=== PATIENT | female | born 1975 | race Caucasian/White ===

== ENCOUNTER 2023-07-30 03:38 | Day surgery (SDC) | payer OTHER, SELFPAY ==
[2023-07-19 13:05] VITALS: BMI 24.2
--- NOTE | 2023-07-19 13:09 | PC.NURSE ---
Report to the Outpatient Waiting Room, entrance under the green pavilion located off [facility], at time 1030 on date 07/30/23. Planned Procedure Time: 1230. Time changes happen often and if your time is changed the preop area will call you the afternoon before. - You and your visitor will be asked to self-screen and do not enter if you have any COVID symptoms. - A mask is optional within the hospital at this time. Patients may have clear liquids (water, carbonated beverages, clear teas, apple juice) until 3 hours prior to surgery with a maximum of 20 ounces. - No food from midnight until time of surgery Take the following medications with a SIP of water the morning of surgery: BUPROPION, GABAPENTIN, VENLAFAXINE DO NOT STOP ANY OF YOUR OTHER PRESCRIPTION MEDICATIONS PRIOR TO SURGERY ?EXCEPT THE FOLLOWING Medications to discontinue per physician: N/A Date to take last dose: N/A Please no make-up, nail hungarian, hairspray, perfume, deodorant, or body powder the day of surgery. No jewelry (including any body piercings) or valuables the day of surgery, leave them at home. Please take a shower or bath the night before, or the morning of, surgery with an antibacterial soap. Wear comfortable, loose fitting clothing. - Jewelry must be removed prior to entering the operating room. Rings and piercings that are not removed may be cut off. - The hospital will not accept responsibility for valuables. - Please leave all valuables, including medications, at home the day of surgery. If you are going home after surgery, a licensed box truck driver must drive you home. - NO public transportation without another adult if you receive anesthesia. - We recommend that an adult stay with you for 24 hours following discharge. - We also recommend that you do not drive, make important decision, drink alcoholic beverages, or take any drugs that were not prescribed by your health care provider for at least 24 hours after your discharge time. Follow any additional instructions given to you from your surgeon. If you or anyone in your household have experienced Covid symptoms in the past week, please notify your surgeon or the nurse liaison at the phone number below for possible testing. Telephone instructions given to PT Meron LOUIS and asked if any additional questions and then verbalized understanding. Patient advised to call surgeon office or pre surgery nurse liaison [phone] if any additional questions.
--- NOTE | 2023-07-30 07:22 | WPDHPUPDATE1 ---
History and Physical Update Update Date/Time: 07/30/23 07:22 History and Physical has been reviewed, including an updated exam of the patient. There are NO changes in the patient's condition. Risks, benefits, and alternatives have been discussed and questions answered. Patient agrees to proceed with procedure.
--- NOTE | 2023-07-30 07:22 | PM.HPGS ---
History of Present Illness History of Present Illness Consent: Risks, benefits, and alternatives have been discussed and questions answered. Patient agrees to proceed with procedure. Chief complaint: vaginal lesion Narrative: Sintia Morel is a 47 year old female with vaginal cuff lesion. Patient reported an episode of vaginal bleeding. On exam a vaginal cuff lesion was identified. It was recommended to go undergo excisional biopsy for pathology. Risks infection, bleeding, and possible pathology are discussed. Patient voices understanding and agrees to proceed. Review of Systems Review of Systems: not repeated day of surgery; patient states no changes in status PMFSH Past Medical History Medical History (Updated 07/30/23 @ 07:28 by Katt Miller MD) Migraine (normal spontaneous vaginal delivery) x4 Status post hysteroscopy Surgical History Surgical History (Updated 07/30/23 @ 07:26 by Katt Miller MD) History of hysterectomy total vaginal hysterectomy 2017 for menorrhagia Status post breast biopsy 2017 benign Status post partial thyroidectomy left 2021 Social History Social History Smoking status: Never smoker Alcohol intake: current Alcohol use details: VERY RARE Substance use: never Substance use type: does not use Living arrangements: with family Spiritual care concerns: No Meds Home Medications and Allergies Home Medications Medication Instructions Recorded Confirmed Type bupropion HCl 150 mg 24 hr tablet, 150 mg PO DAILY 07/19/23 07/19/23 History extended release gabapentin 300 mg capsule 300 mg PO TID 07/19/23 07/19/23 History ipratropium bromide 21 mcg (0.03 2 spray intranasal BID 07/19/23 07/19/23 History %) nasal spray venlafaxine 75 mg capsule,extended 75 mg PO DAILY 07/19/23 07/19/23 History release 24 hr Allergies Allergy/AdvReac Type Severity Reaction Status Date / Time No Known Allergies Allergy Unknown Unverified 07/19/23 13:02 Exam Const: General: healthy appearing and alert Orientation/consciousness: patient oriented x3 Resp: Effort & Inspection: normal respiratory effort : External Female Exam: normal external appearance Speculum Exam - Vagina: normal vaginal discharge and lesion ( vaginal lesion consistent with possible polyp) Bimanual Exam- Adnexa, other: normal adnexae and No adnexal tenderness Neuro: General: patient oriented x3 Assessment and Plan Assessment and plan (1) Vaginal lesion: Code(s): N89.8 - Other specified noninflammatory disorders of vagina Status: Acute Assessment and Plan: plan to proceed with excisional biopsy
[2023-07-30 11:15] VITALS: BP 110/74; PULSE 71; RESP 18; TEMP 36.2; O2SAT 100
[2023-07-30] MEDS: LACTATED RINGERS 1,000 ML 30 ML IV CONT (11:18)
[2023-07-30] MEDS: ACETAMINOPHEN 500 MG TABLET 1000 MG PO (11:24)
--- NOTE | 2023-07-30 12:21 | P.PNAN_ITS ---
Anes - Initial Pre Proc Eval Procedure: Operation Date: 07/30/23 12:30 Proposed Procedures p Removal of Vaginal Lesion - Katt Miller MD Date/Time: 07/30/23 12:21 Surgeon: Katt Miller MD Pre Op Diagnosis: vaginal lesion Patient Data Age: 47 Gender: F Height: 1.68 m Weight: 67.8 kg Last Vital Signs Temp 97.2 F L 07/30/23 11:15 Pulse 71 07/30/23 11:15 Resp 18 07/30/23 11:15 BP 110/74 07/30/23 11:15 Pulse Ox 100 07/30/23 11:15 O2 Del Method Room Air 07/30/23 11:15 Allergies Allergy/AdvReac Type Severity Reaction Status Date / Time No Known Allergies Allergy Unknown Verified 07/30/23 10:52 Home Medications Medication Instructions Recorded Confirmed Type bupropion HCl 150 mg 24 hr tablet, 150 mg PO DAILY 07/19/23 07/30/23 History extended release gabapentin 300 mg capsule 300 mg PO TID 07/19/23 07/30/23 History ipratropium bromide 21 mcg (0.03 2 spray intranasal BID 07/19/23 07/30/23 History %) nasal spray venlafaxine 75 mg capsule,extended 75 mg PO DAILY 07/19/23 07/30/23 History release 24 hr Patient hx anesthesia problems: none Family hx anesthesia problems: none Results Review: All pre-operative results and documents have been reviewed as part of the pre- operative evaluation. FORMERLY [facility], [facility] Past Medical History Medical History Migraine (normal spontaneous vaginal delivery) x4 Status post hysteroscopy Surgical History Surgical History History of hysterectomy total vaginal hysterectomy 2017 for menorrhagia Status post breast biopsy 2017 benign Status post partial thyroidectomy left 2021 Social History Social History Smoking status: Never smoker Alcohol intake: current Alcohol use details: VERY RARE Substance use: never Substance use type: does not use Living arrangements: with family Spiritual care concerns: No Anes - Eval Final PreProcedure Day of Procedure 07/30/23 12:21 Patient weight: normal Heart: regular rate and rhythm Lungs: clear to auscultation Airway: Mallampati scale Neurological: alert and oriented Last oral intake: >/= 8 hours ASA classification: I Emergent: no Anesthetic plan: proceed Anesthesia type and monitoring: general GIVS and standard monitoring Results Review: All pre-operative results and documents have been reviewed as part of the pre- operative evaluation. Informed Consent: The patient's anesthetic plan and its attendant risks and benefits were discussed with the patient/family/POA. Questions were solicited and answers provided to the satisfaction of the patient/family/POA.
[2023-07-30] MEDS: LIDO 1%/EPINEPHRINE 1:100,000 20 ML VIAL 10 ML INFILTRATE (12:45)
[2023-07-30 12:55] VITALS: BP 106/67; PULSE 76; RESP 12; O2SAT 100
--- NOTE | 2023-07-30 12:55 | W.PM.PROC2 ---
Procedure Note - Detailed Date of Procedure 07/30/23 Pre-op Diagnosis vaginal lesion Post-op Diagnosis Same (Granulation tissue with suture) Procedure Performed excision of granulation tissue and suture at vaginal cuff Surgeon Katt Miller MD Anesthesia MAC and Local Description of Procedure The patient is taken to the operating room and placed under anesthesia in the dorsal lithotomy position. She was prepped and draped in the usual sterile fashion. Coated bivalve speculum was placed in the vagina and the vaginal lesion is identified. The lesion was injected with 1% lidocaine with Epinephrine. The lesion is grasped with a coated pickup and cauterized. After removal of the lesion it is noted to have a suture at the cuff where the granulation tissue was identified. The suture was grasped and cut with scissors and removed. The base of the vaginal granulation tissue was cauterized. All instruments are removed. Sponge, needle, and instrument counts are correct per the OR staff. Estimated Blood Loss 5 Drains No Packing No Pathology None sent ( Granulation tissue discarded) Complications No immediate complications Condition Stable Disposition PACU
[2023-07-30 13:25] VITALS: BP 102/62; PULSE 72
[2023-07-30 13:55] VITALS: BP 126/78; PULSE 62
== END 2023-07-30 14:23 | disposition home or self-care (01) ==
PROVIDERS: PCP Physician Assistant; Visit Provider Obstetrics & Gynecology Gynecology
PROC: (CPT 57061; principal; 2023-07-30 12:30)
DX: N89.8 Other specified noninflammatory disorders of vagina (principal); Z18.89 Other specified retained foreign body fragments; Z98.890 Other specified postprocedural states
CPT/HCPCS: 57061; A9270; J2250; J2405; J2704; J3010; J7120